=== PATIENT | male | born 1980 | race Two or more races ===

== ENCOUNTER 2019-01-10 10:24 | Emergency (ER) | payer OTHER ==
[~2019-01-10] VITALS: Ht 170.2 cm; Wt 81.2 kg
== END 2019-01-10 15:54 | disposition home or self-care (01) ==
LOC: ER 10:24
DX: N20.0 Calculus of kidney (principal); R10.31 Right lower quadrant pain

== ENCOUNTER 2019-01-10 16:35 | Emergency (ER) | payer OTHER ==
[~2019-01-10] VITALS: Ht 167.6 cm; Wt 81.2 kg
== END 2019-01-10 22:10 | disposition home or self-care (01) ==
LOC: ER 16:35
DX: N21.1 Calculus in urethra (principal); R10.32 Left lower quadrant pain

== ENCOUNTER 2019-01-13 13:33 | Outpatient (CLI) | payer OTHER ==
[2019-01-18] MEDS ORDERED: PERCOCET PO (07:11)
[2019-01-18] MEDS ORDERED: PNEU16DI2 (07:12)
== END 2019-01-13 13:41 | disposition home or self-care (01) ==
LOC: LAB 13:33
DX: N20.1 Calculus of ureter (principal)

== ENCOUNTER 2019-01-17 09:49 | Outpatient (CLI) | payer OTHER ==
[2019-01-18] MEDS ORDERED: PERCOCET PO (07:11)
[2019-01-18] MEDS ORDERED: PNEU16DI2 (07:12)
== END 2019-01-17 09:59 | disposition home or self-care (01) ==
LOC: RAD 501 09:49
DX: N20.1 Calculus of ureter (principal); Z01.811 Encounter for preprocedural respiratory examination

== ENCOUNTER 2019-01-19 05:56 | Day surgery (SDC) | payer OTHER ==
[~2019-01-19 05:56] MED LIST: PERCOCET PO; PNEU16DI2
== END 2019-01-19 11:15 | disposition home or self-care (01) ==
LOC: CIR.AMB 05:56 → LAB 16:12 → CIR.AMB 17:30
DX: N20.1 Calculus of ureter (principal)

== ENCOUNTER 2019-04-26 09:50 | Outpatient (CLI) | payer OTHER | END 2019-04-26 13:31 | disposition home or self-care (01) | LOC: LAB 09:50 | DX: D50.8 Other iron deficiency anemias (principal); Z12.11 Encounter for screening for malignant neoplasm of colon; R59.9 Enlarged lymph nodes, unspecified; D50.9 Iron deficiency anemia, unspecified ==

== ENCOUNTER 2019-04-26 09:51 | Outpatient (CLI) | payer OTHER | END 2019-04-26 17:00 | disposition home or self-care (01) | LOC: SONOGRAMA 09:51 | DX: R59.0 Localized enlarged lymph nodes (principal); R05 Cough; R59.9 Enlarged lymph nodes, unspecified ==